=== PATIENT | male | born 1955 | race African-American/Black ===

== ENCOUNTER → 2016-12-10 | Outpatient (CLI) | payer OTHER ==
[~2016-12-10] MED LIST: ACCUPRIL; FLEXERIL; HYDROCODONE-APA1 T30; NORVASC
== END | disposition home or self-care (01) ==
LOC: CRC 12-04 09:00
DX: R05 Cough (principal); R06.02 Shortness of breath; F17.210 Nicotine dependence, cigarettes, uncomplicated
CPT/HCPCS: 94060; 94726; 94729